=== PATIENT | female | born 1975 | race Two or more races ===

== ENCOUNTER 2017-01-09 01:35 | Emergency (ER) | payer MEDICAID ==
[~2017-01-09] VITALS: Ht 157.5 cm; Wt 64.9 kg
[2017-01-09 12:16] VITALS: BP 104/52
== END 2017-01-09 12:18 | disposition home or self-care (01) ==
LOC: ER 01:38
DX: R09.89 Other specified symptoms and signs involving the circulatory and respiratory systems (principal); Z88.8 Allergy status to other drugs, medicaments and biological substances
CPT/HCPCS: 70360

== ENCOUNTER 2017-03-07 07:29 | Emergency (ER) | payer MEDICAID ==
[~2017-03-07] VITALS: Ht 152.4 cm; Wt 63.5 kg
[2017-03-07 08:50] VITALS: BP 108/52
[2017-03-07] MEDS ORDERED: LIDOCAINE 1% HCL (LOCAL ANESTH.) INJ 20ML MDV IJ ONE ×2 (09:00→10:30)
[2017-03-07] MEDS ORDERED: LIDOCAINE 1% HCL (LOCAL ANESTH.) INJ 20ML MDV ONE (10:03)
== END 2017-03-07 10:32 | disposition home or self-care (01) ==
LOC: ER 07:30
DX: L02.11 Cutaneous abscess of neck (principal); Z88.2 Allergy status to sulfonamides
CPT/HCPCS: 10060; 99283; J2001

== ENCOUNTER 2017-03-09 09:50 | Emergency (ER) | payer MEDICAID ==
[~2017-03-09] VITALS: Ht 152.4 cm; Wt 64.9 kg
[2017-03-09 10:35] VITALS: BP 110/51
== END 2017-03-09 10:57 | disposition home or self-care (01) ==
LOC: ER 09:50
DX: L02.11 Cutaneous abscess of neck (principal); Z48.01 Encounter for change or removal of surgical wound dressing; Z88.2 Allergy status to sulfonamides

== ENCOUNTER 2018-06-13 09:47 | Emergency (ER) | payer MEDICAID ==
[~2018-06-13] VITALS: Ht 157.5 cm; Wt 64.4 kg
[2018-06-13 09:55] VITALS: BP 114/63
== END 2018-06-13 10:16 | disposition home or self-care (01) ==
LOC: ER 09:47
DX: L02.11 Cutaneous abscess of neck (principal); Z88.2 Allergy status to sulfonamides
CPT/HCPCS: 10060